=== PATIENT | female | born 2005 | race Hispanic/Latino ===

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

== ENCOUNTER 2024-10-31 22:00 | Emergency (ER) | payer OTHER, SELFPAY ==
[2024-10-31] MEDS ORDERED: Erythromycin Base 0.5% Oint 1 GM TUBE ONE (23:59)
[2024-10-31] MEDS ORDERED: Proparacaine 0.5% Opth 15 ML BOT ONE (23:59)
[2024-11-01] MEDS ORDERED: Ibuprofen 800 MG TAB ONE (01:25)
== END 2024-11-01 01:34 | disposition home or self-care (01) ==
LOC: ERS 22:00
DX: H10.89 Other conjunctivitis (principal)
CPT/HCPCS: 99283